=== PATIENT | female | born 1970 | race Caucasian/White ===

== ENCOUNTER 2016-05-23 07:04 | Emergency (ER) | payer MEDICAID ==
[2016-05-23 07:26] LABS: Urine Bilirubin Negative (NEGATIVE); Urine Blood 250 /ul (NEGATIVE); Urine Ketone Negative (NEGATIVE); Urine Nitrite Negative (NEGATIVE); Urine Protein Negative (NEGATIVE); Urine Specific Gravity 1.025 SP.GR. (1.005-1.010); Urine Urobilinogen Normal (NORMAL)
[2016-05-23] MEDS ORDERED: KETOROLAC TROMETHAMINE 60 MG/2 ML VIAL IM ONE ×2 (07:37→07:39)
[2016-05-23 07:45] LABS: Urine Color Dark Yellow
--- NOTE | 2016-05-23 07:45 | ERNOTE ---
<Jason Gates - Last Filed: 05/23/16 07:59> ER Female HPI Stated Complaint: UTI Presenting Symptoms: other - flank pain Source: patient Exam Limitations: no limitations Immunizations: IMMUNIZATION HX Immunizations Up to Date Yes History of Influenza Vaccine No Hx Pneumococcal Vaccination No Allergies/Adverse Reactions: Allergies hydrocodone Allergy (Severe, Verified 05/23/16 07:12) Hives Home Medications: HOME MEDICATIONS Ondansetron [Zofran Odt] 4 mg PO Q6H PRN #10 tab 05/23/16 [Last Taken Unknown] Tamsulosin HCl [Flomax] 0.4 mg PO DAILY@1800 #7 capsule 05/23/16 [Last Taken Unknown] traMADol HCL [Ultram] 50 mg PO QID PRN #20 tablet 05/23/16 [Last Taken Unknown] - History of Present Illness Narrative: Pt states she was working overnight and she began to have right flank pain around 2:30. It worsened around 3:30 and began to wrap around to her groin. Pain is colicy but does not completely resolve. Timing: Present: getting worse Quality: Present: moderate, aching, cramping Onset Location: Present: right flank Radiation: Present: RLQ Activities at Onset: Present: physical activity Prior Abdominal Problems: Present: none Modifying Factors - (Worsens): Present: coughing, other - leaning toward the pain Associated Symptoms: Present: fever/chills, nausea - when the pain worsens Review of Systems - Review of Systems Constitutional: Absent: recent illness EYE: Present: no symptoms reported ENT: Present: no symptoms reported Respiratory: Present: no symptoms reported Cardiology: Present: no symptoms reported Gastrointestinal/Abdominal: Present: eating less - Just didn't have an appetite. Absent: vomiting, diarrhea, constipation Genitourinary: Present: See HPI, frequency. Absent: pain, dysuria Musculoskeletal: Present: back pain Skin: Absent: rash Neurological: Present: no symptoms reported Endocrine: Present: no symptoms reported Hematologic/Lymphatic: Present: no symptoms reported Psych: Present: no symptoms reported - Patient's Past Medical History Patient History - Medical: Kidney stone, Migraines Patient History - Cardiac/Respiratory: No pertinent hx Patient History - Cancer: No Hx of Cancer Patient History - Surgical Procedures: D & C, Other - Family History Mother Family History - Medical: Anxiety, Diabetes Type 2, Depression, Osteoporosis Family History - Cardiac/Respiratory: CHF - Social History Living Situations: home Smoking Status: Current every day smoker Have you smoked in the past 12 months: Yes Alcohol Use: none Drug Use: none Physical Exam - Physical Exam General Appearance: Present: wd/wn, alert, no apparent distress, other - appears mildly uncomfortable Ears, Nose, Throat: Present: normal ENT inspection, hearing grossly normal Neck: Present: normal inspection, supple Respiratory: Present: no respiratory distress, no accessory muscle use Gastrointestinal/Abdominal: Present: normal bowel sounds, nontender, nondistended, soft, no organomegaly Back Exam: Present: normal inspection, normal range of motion, CVA tenderness (R ) - minimal. Absent: vertebral tenderness Extremity Exam: Present: normal inspection, non-tender, no edema, normal range of motion Neurological Exam: Present: alert, oriented, normal mood/affect, no motor/ sensory deficits Skin Exam: Present: normal color, warm/dry ED Progress - Results and Orders Patient's Lab Results:: I have reviewed the patient's lab results. Results and Orders: Laboratory Tests 05/23/16 05/23/16 07:12 07:18 Urine Color Dark yellow Urine Appearance Slightly cloudy Urine pH 6.0 Ur Specific [place] 1.025 Urine Protein Negative Urine Glucose (UA) Negative Urine Ketones Negative Urine Blood 250 H Urine Nitrate Negative Urine Bilirubin Negative Urine Urobilinogen Normal Ur Leukocyte Esterase Negative Urine RBC >50 H Urine WBC Trace H Ur Epithelial Cells 0-5 Urine Bacteria Trace Urine Mucus Few - 1+ H Urine Culture Comments No culture indicated Urine HCG, Qual Negative - Vital Signs Patient's Vital Signs:: I have reviewed the patient's vital signs. Vital Signs: Vital Signs 05/23/16 07:09 Pulse Rate 89 Respiratory 14 Rate Blood Pressure 131/92 O2 Sat by Pulse 99 Oximetry - Progress/Reassessment Chief Complaint: Genitourinary Problem Progress:: Unchanged Progress Note-Subjective: 05/23/16 07:51 Urine showed hematuria without evidence of infection. Stone protocol CT ordered. - Transfer of Care Physician Sign Out: Jason Gates Receiving Physician: Patrick Nicholas Pending Results: CT/MRI results Expected Disposition: Discharge Departure Clinical Impression: Flank pain, acute, Renal stone - Departure Disposition: Home self-care Condition: Good Instructions: Renal Colic, [id number] Referrals: Vivian Estevez FNP [Primary Care Provider] - Prescriptions: Ondansetron [Zofran Odt] 4 mg PO Q6H PRN #10 tab PRN Reason: Nausea And Vomiting Tamsulosin HCl [Flomax] 0.4 mg PO DAILY@1800 #7 capsule traMADol HCL [Ultram] 50 mg PO QID PRN #20 tablet PRN Reason: Moderate Pain <Patrick Nicholas - Last Filed: 05/23/16 09:22> ER Female HPI Immunizations: IMMUNIZATION HX Immunizations Up to Date Yes History of Influenza Vaccine No Hx Pneumococcal Vaccination No ED Progress - Vital Signs Vital Signs: Vital Signs 05/23/16 05/23/16 07:09 08:49 Pulse Rate 89 99 Respiratory 14 14 Rate Blood Pressure 131/92 121/86 O2 Sat by Pulse 99 100 Oximetry - CT/Ultrasound CT/Ultrasound Narrative: CT reviewed
[2016-05-23 07:46] LABS: Urine Appearance Slightly Cloudy; Urine Bacteria TRACE; Urine Mucus Few - 1+; Urine RBC >50 /hpf (0-5); Urine WBC TRACE /hpf (0-5)
[2016-05-23 08:50] VITALS: BP 121/86
== END 2016-05-23 09:32 | disposition home or self-care (01) ==
LOC: ER 07:04
DX: N20.0 Calculus of kidney (principal); F17.210 Nicotine dependence, cigarettes, uncomplicated

== ENCOUNTER 2016-07-15 18:42 | Emergency (ER) | payer MEDICAID ==
[2016-07-15 19:01] VITALS: BP 149/89
--- OUTSIDE RECORDS SUMMARY | 2016-07-15 19:21 | XMS REPORT | Continuity of Care Document ---
:1970 Author Organization [facility] ([facility]) Address [address] [place] [address] Phone [phone] Care Team Providers Name Role Phone Provider, No-Primary Care Primary Care Provider Unavailable Source Comments This disclosure is being made pursuant to the Care Everywhere program, applicable federal and state laws, and may not contain all informaitonavailable regarding this patient.[facility] ([facility]) Active Allergies and Adverse Reactions Allergen Noted Date Severity Reactions Comments Hydrocodone-Acetaminophen 07/14/2014 Anaphylaxis,Rash Current Medications Prescription Sig. Disp. Refills Start Date End Date Status ibuprofen 800 mg tablet Take 1 Tab by mouth 20 Tab 0 07/14/2014 Active every 6 hours as needed for Pain. DO NOT EXCEED 3,200 MG IBUPROFEN PER DAY FROM ALL SOURCES Indications: PAIN traMADol 50 mg tablet Take 1-2 Tabs by 20 Tab 0 07/14/2014 Active mouth every 6 hours as needed for Pain. Indications: PAIN Active Problems Not on file Social History Tobacco Use Types Packs/Day Years Used Date Current Every Day Smoker Cigarettes 1 30 Smokeless Tobacco: Never Used Tobacco Cessation:Ready to Quit: Yes; Counseling Given: Yes Comments: Last Filed Vital Signs Vital Sign Reading Time Taken Blood Pressure 132/79 07/14/2014 3:17 PM [employer]OW [employer]ENCE [employer]OR Pulse 90 07/14/2014 3:17 PM [employer] Temperature 37 C (98.6 F) 07/14/2014 2:38 PM [employer]ENCE [employer] Respiratory Rate - - Height 1.676 m (5' 5.98") 07/14/2014 2:38 PM [employer] Weight 66.679 kg (147 lb) 07/14/2014 2:38 PM [employer] Body Mass Index 23.74 07/14/2014 2:38 PM [employer] Oxygen Saturation 100% 07/14/2014 2:38 PM [employer]ENCE [employer] Plan of Care Health Maintenance Due Date Last Done Comments Hepatitis B Vaccine (1 of 3 - Primary Series) 1970 Tdap Vaccine 1981 Lipid Disorder Screening 02/12/1988 MMR Vaccine 02/12/1988 Td Vaccine 02/12/1988 Pneumococcal Vaccine (1 of 1 - PPSV23) 1989 Cervical Cancer Screening 02/12/2000 Mammogram 2010 Influenza Vaccine: Seasonal (#1) 12/12/2015 Results from Last 3 Months Not on file
--- OUTSIDE RECORDS SUMMARY | 2016-07-15 19:21 | XMS REPORT | Summary of Care ---
:1970 Author Organization [facility] Address [address] [place] [id number]- Care Team Providers Name Role Phone Chelo Gill Primary Care Physician Encounter Date(s): 05/28/16 - 05/28/[address] [address]- [facility] Discharge Disposition: 01 Discharged to Home or Self Care Attending Physician: Claus Arriaga MD Admitting Physician: Claus Arriaga MD Vital Signs No data available for this section Problem List Condition Effective Dates Status Health Status Informant Family history of rheumatoid Active arthritis(Confirmed) Anxiety, generalized(Confirmed) Active Mild depression(Confirmed) Active Allergies, Adverse Reactions, Alerts Substance Reaction Severity Status Vicodin1 Mild Active 1if taken longer than a week, develops a rash and throat swelling Medications albuterol 2.5 mg/3 mL (0.083%) inhalation solution 3 mL, Inhale, q6hr, PRN for wheezing, # 25 EA, 0 Refill(s), Start Date: 11:47:00 CDT, Pharmacy: [place], [place] Start Date: 03/06/16 Stop Date: 03/06/16 Status: Completedalbuterol 2.5 mg/3 mL (0.083%) inhalation solution 3 mL, Inhale, q6hr, PRN for wheezing, # 25 EA, 0 Refill(s), Start Date: 13:00:00 CDT, Pharmacy: [place], [place] Start Date: 03/06/16 Status: Orderedalbuterol 90 mcg/inh inhalation powder 2 puff(s), Inhale, q4hr interval, # 1 EA, 1 Refill(s), Start Date: 02/21/16 12: 50:00 CDT, Pharmacy: [facility], [place] Start Date: 02/21/16 Stop Date: 04/21/16 Status: Orderedalbuterol 90 mcg/inh inhalation powder 2 puff(s), Inhale, q4hr interval, X 30 days, # 1 EA, 1 Refill(s), Start Date: 10:41:04 CDT, Pharmacy: [facility], [place] Start Date: 02/21/16 Stop Date: 02/21/16 Status: Completedalbuterol 90 mcg/inh inhalation powder 2 puff(s), Inhale, q4hr interval, X 30 days, # 1 EA, 1 Refill(s), Start Date: 9:47:00 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, Pharmacy: [facility], [place] Start Date: 03/28/15 Stop Date: 02/21/16 Status: CompletedAMOXICILLIN 500 MG CAPS 1 capsule, Oral, 0 Refill(s), Supply Start Date: 05/28/16 Status: OrderedAPAP/CODEINE TAB 300-30MG 1, Oral, q4hr interval, 0 Refill(s), Supply Start Date: 05/28/16 Status: Orderedatorvastatin 20 mg oral tablet 1 tab(s), Oral, Daily, # 30 tab(s), 0 Refill(s), Start Date: 05/26/15 16:28:00 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 Start Date: 05/26/15 Stop Date: 02/21/16 Status: Discontinuedatorvastatin 20 mg oral tablet 1 tab(s), Oral, Daily, # 30 tab(s), 5 Refill(s), Start Date: 02/02/15 12:38:00 CDT, Pharmacy: [facility], [place] Start Date: 02/02/15 Stop Date: 03/28/15 Status: DiscontinuedbuPROPion 150 mg/12 hours (SR) oral tablet, extended release 1 tab(s), Oral, BID, # 60 tab(s), 5 Refill(s), Start Date: 05/26/15 16:44:00 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 , Pharmacy: [facility], [place] Start Date: 05/26/15 Stop Date: 02/21/16 Status: Discontinuedcephalexin 500 mg oral capsule 1 cap(s), Oral, TID, # 30 cap(s), 0 Refill(s), Start Date: 08/29/14 23:51:00 CDT Start Date: 08/29/14 Stop Date: 01/06/15 Status: DiscontinuedChantix 1 mg oral tablet 1 tab(s), Oral, BID, after meals, # 60 tab(s), 0 Refill(s), Start Date: 14:10:00 CDT Start Date: 12/15/14 Stop Date: 03/28/15 Status: DiscontinuedCheratussin AC 10 mg-100 mg/5 mL oral syrup 10 mL, Oral, q6hr interval, PRN for cough, not to exceed 12 teaspoons/day, X 5 days, # 200 mL, 0 Refill(s), Start Date: 03/28/15 9:59:00 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, Pharmacy: [place], [place] Start Date: 03/28/15 Stop Date: 04/02/15 Status: CompletedDME - Nebulizer 1 EA, NEB, 02/21/16, Criteria in Order Comments Met?, # 1 EA, 0 Refill(s), 02/20 13:21:00 CDT, Supply Start Date: 02/21/16 Status: OrderedFLUoxetine 20 mg oral tablet 1 tab(s), Oral, Daily, # 30 tab(s), 11 Refill(s), Start Date: 01/18/15 17:54:00 CDT, Pharmacy: [place], [place] Start Date: 01/18/15 Stop Date: 03/28/15 Status: DiscontinuedFLUoxetine 20 mg oral tablet 1 tab(s), Oral, Daily, X 30 days, # 30 tab(s), 0 Refill(s), Start Date: 14:45:00 CDT, Pharmacy: [place], [place] Start Date: 12/15/14 Stop Date: 01/18/15 Status: Completedmultivitamin 1 tab(s), Oral, Daily, 0 Refill(s), Start Date: 12/15/14 14:10:00 CDT Start Date: 12/15/14 Stop Date: 02/21/16 Status: Discontinuednaproxen 500 mg oral tablet 1 tab(s), Oral, BID, with food, # 60 tab(s), 0 Refill(s), Start Date: 12/24/14 21:37:00 CDT Start Date: 12/24/14 Stop Date: 02/21/16 Status: Discontinuednicotine 4 mg oral transmucosal gum 1 EA, Chewed, q2hr, PRN for smoking cessation, # 360 EA, 2 Refill(s), Start Date : 06/06/15 12:13:00 [employer] 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, Pharmacy: [place], [place] Start Date: 06/06/15 Stop Date: 02/21/16 Status: Discontinuednicotine 4 mg oral transmucosal gum 1 EA, Chewed, q2hr, PRN for smoking cessation, # 120 EA, 0 Refill(s), Start Date : 06/06/15 10:36:00 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 Start Date: 06/06/15 Stop Date: 06/06/15 Status: DiscontinuedONDANSETRON ODT 4 MG TBDP 1 tab, Oral, TID, 0 Refill(s), Supply Start Date: 05/28/16 Status: OrderedPaxil 10 mg oral tablet 1 tab(s), Oral, Daily, # 30 tab(s), 1 Refill(s), Start Date: 02/21/16 12:50:00 CDT, Pharmacy: [place], [place] Start Date: 02/21/16 Stop Date: 05/28/16 Status: DiscontinuedPaxil 10 mg oral tablet 1 tab(s), Oral, Daily, # 30 tab(s), 1 Refill(s), Start Date: 02/21/16 10:40:00 CDT, Pharmacy: [place], [place] Start Date: 02/21/16 Stop Date: 02/21/16 Status: CompletedPulmicort Flexhaler 90 mcg/inh inhalation powder 90 mcg=, Inhale, BID, # 1 EA, 0 Refill(s), other reason (Rx) Start Date: 03/05/16 Stop Date: 05/28/16 Status: DiscontinuedPulmicort Flexhaler 90 mcg/inh inhalation powder 90 mcg=, Inhale, BID, # 1 EA, 1 Refill(s), Pharmacy: [place], [place] Start Date: 02/21/16 Stop Date: 03/05/16 Status: DiscontinuedPulmicort Respules 1 mg/2 mL inhalation suspension 2 mL, NEB, Daily, # 60 mL, 0 Refill(s), Start Date: 02/21/16 13:21:00 CDT, Pharmacy: [place], [place] Start Date: 02/21/16 Stop Date: 02/21/16 Status: DiscontinuedPyridium 100 mg oral tablet 1 tab(s), Oral, TIDPC, # 9 tab(s), 0 Refill(s), Start Date: 08/29/14 23:51:00 CDT Start Date: 08/29/14 Stop Date: 01/06/15 Status: DiscontinuedTAMSULOSIN HCL .4 MG CAPS 1 cap, Oral, Daily, 0 Refill(s), Supply Start Date: 05/28/16 Status: OrderedTRAMADOL HCL 50 MG TABS 1 tab, Oral, q4hr interval, PRN pain moderate 4-7, 0 Refill(s), Supply Start Date: 05/28/16 Status: Ordered Results Patient Viewable Results Most recent to oldest [Reference Range]: 1 UA Color Yellow *NA* (05/28/16 11:20 AM) Urine Clarity Hazy *NA* (05/28/16 11:20 AM) Specific [place] [1.000-1.060] 1.009 (05/28/16 11:20 AM) Urine pH [5-8] 6 (05/28/16 11:20 AM) Ketones Negative (05/28/16 11:20 AM) Bilirubin [Negative] Negative (05/28/16 11:20 AM) Urine Protein [Negative] Negative (05/28/16 11:20 AM) Glucose [Negative] Negative (05/28/16 11:20 AM) Urine HGB [Negative] 2+ *ABN* (05/28/16 11:20 AM) Urobilinogen <2.0 *NA* (05/28/16 11:20 AM) Nitrite [Negative] Negative (05/28/16 11:20 AM) Leuk Esterase [Negative] Trace *ABN* (05/28/16 11:20 AM) UA Ascorbic Acid [Negative] Negative (05/28/16 11:20 AM) Urine WBC [0-5] 0-5 (05/28/16 11:20 AM) Urine RBC [0-2] 3-10 *ABN* (05/28/16 11:20 AM) Squamous Epi 6-10 *ABN* (05/28/16 11:20 AM) Bacteria 2+ *ABN* (05/28/16 11:20 AM) Mucus Trace (05/28/16 11:20 AM) Immunizations No data available for this section Procedures Procedure Date Related Diagnosis Body Site DRAINAGE OF SKIN ABSCESS 05/13/01 Dilation and curettage 1986 Repair of wrist1 1977 1right wrist reset Social History No data available for this section Assessment and Plan No data available for this section
--- OUTSIDE RECORDS SUMMARY | 2016-07-15 19:21 | XMS REPORT | Summary of Care ---
:1970 Author Organization [facility] Address [address] [place] [address] Care Team Providers Name Role Phone Chelo Gill Primary Care Physician Encounter Date(s): 05/28/16 - 05/28/[address] [facility] [address] [place], [place] [address] Discharge Diagnosis: Kidney stone on left side Discharge Diagnosis: Right distal ureteral calculus Discharge Disposition: 01 Discharged to Home or Self Care Attending Physician: Claus Arriaga MD Referring Physician: Claus Arriaga MD Vital Signs Most recent to oldest [Reference Range]: 1 Temperature Temporal Artery [36.0-38.0 DegC] 36.7 DegC (05/28/16 9:32 AM) Peripheral Pulse Rate [60-100 bpm] 100 bpm (05/28/16 9:32 AM) Blood Pressure [90-130/60-90 mmHg] 148/88mmHg *HI* (05/28/16 9:32 AM) Mean Arterial Pressure, Cuff 108 mmHg (05/28/16 9:32 AM) Weight Dosing 73.3 kg (05/28/16 9:32 AM) Weight Measured 73.3 kg (05/28/16 9:32 AM) Problem List Condition Effective Dates Status Health [...] 0 Refill(s), Start Date: 11:47:00 CDT, Pharmacy: [place], [place] Start Date: 03/06/16 Stop Date: 03/06/16 Status: Completedalbuterol 2.5 mg/3 mL (0.083%) inhalation solution 3 mL, Inhale, q6hr, PRN for wheezing, # 25 EA, 0 Refill(s), Start Date: 13:00:00 CDT, Pharmacy: [place], [place] Start Date: 03/06/16 Status: Orderedalbuterol 90 mcg/inh inhalation powder 2 puff(s), Inhale, q4hr interval, # 1 EA, 1 Refill(s), Start Date: 02/21/16 12: 50:00 CDT, Pharmacy: [place], [place] Start Date: 02/21/16 Stop Date: 04/21/16 Status: Orderedalbuterol 90 mcg/inh inhalation powder 2 puff(s), Inhale, q4hr interval, X 30 days, # 1 EA, 1 Refill(s), Start Date: 10:41:04 CDT, Pharmacy: [place], [place] Start Date: 02/21/16 Stop Date: 02/21/16 Status: Completedalbuterol 90 mcg/inh inhalation powder 2 puff(s), Inhale, q4hr interval, X 30 days, # 1 EA, 1 Refill(s), Start Date: 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, 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[place], [place] Start Date: 03/28/15 Stop Date: 02/21/16 Status: CompletedAMOXICILLIN 500 MG CAPS 1 capsule, Oral, 0 Refill(s), Supply Start Date: 05/28/16 Status: OrderedAPAP/CODEINE TAB 300-30MG 1, Oral, q4hr interval, 0 Refill(s), Supply Start Date: 05/28/16 Status: Orderedatorvastatin 20 mg oral tablet 1 tab(s), Oral, Daily, # 30 tab(s), 0 Refill(s), Start Date: 05/26/15 16:28:00 CAMPUS RECRUITER Start Date: 05/26/15 Stop Date: 02/21/16 Status: Discontinuedatorvastatin 20 mg oral tablet 1 tab(s), Oral, Daily, # 30 tab(s), 5 Refill(s), Start Date: 02/02/15 12:38:00 CDT, Pharmacy: [place], [place] Start Date: 02/02/15 Stop Date: 03/28/15 Status: DiscontinuedbuPROPion 150 mg/12 hours (SR) oral tablet, extended release 1 tab(s), Oral, BID, # 60 tab(s), 5 Refill(s), Start Date: 05/26/15 16:44:00 CAMPUS RECRUITER , Pharmacy: [place], [place] Start Date: 05/26/15 Stop Date: 02/21/16 Status: [...] mL, 0 Refill(s), Start Date: 03/28/15 9:59:00 CAMPUS RECRUITER, Pharmacy: [place], [place] Start Date: 03/28/15 Stop Date: 04/02/15 Status: CompletedDME - Nebulizer 1 EA, NEB, 02/21/16, Criteria in Order Comments Met?, # 1 EA, 0 Refill(s), 02/20 13:21:00 CDT, Supply Start Date: 02/21/16 Status: OrderedFLUoxetine 20 mg oral tablet 1 tab(s), Oral, Daily, # 30 tab(s), 11 Refill(s), Start Date: 01/18/15 17:54:00 CDT, Pharmacy: [place], [place] Start Date: 01/18/15 Stop Date: 03/28/15 Status: DiscontinuedFLUoxetine 20 mg oral tablet 1 tab(s), Oral, Daily, X 30 days, # 30 tab(s), 0 Refill(s), Start Date: 14:45:00 CDT, Pharmacy: [place], [place] Start Date: 12/15/14 Stop Date: 01/18/15 [...] 2 Refill(s), Start Date : 06/06/15 12:13:00 CAMPUS RECRUITER, Pharmacy: [place], [place] Start Date: 06/06/15 Stop Date: 02/21/16 Status: Discontinuednicotine 4 mg oral transmucosal gum 1 EA, Chewed, q2hr, PRN for smoking cessation, # 120 EA, 0 Refill(s), Start Date : 06/06/15 10:36:00 CAMPUS RECRUITER Start Date: 06/06/15 Stop Date: 06/06/15 Status: DiscontinuedONDANSETRON ODT 4 MG TBDP 1 tab, Oral, TID, 0 Refill(s), Supply Start Date: 05/28/16 Status: OrderedPaxil 10 mg oral tablet 1 tab(s), Oral, Daily, # 30 tab(s), 1 Refill(s), Start Date: 02/21/16 12:50:00 CDT, Pharmacy: [place], [place] Start Date: 02/21/16 Stop Date: 05/28/16 Status: DiscontinuedPaxil 10 mg oral tablet 1 tab(s), Oral, Daily, # 30 tab(s), 1 Refill(s), Start Date: 02/21/16 10:40:00 CDT, Pharmacy: [place], [place] Start Date: 02/21/16 Stop Date: 02/21/16 Status: CompletedPulmicort Flexhaler 90 mcg/inh inhalation powder 90 mcg=, Inhale, BID, # 1 EA, 0 Refill(s), other reason (Rx) Start Date: 03/05/16 Stop Date: 05/28/16 Status: DiscontinuedPulmicort Flexhaler 90 mcg/inh inhalation powder 90 mcg=, Inhale, BID, # 1 EA, 1 Refill(s), Pharmacy: [place], [place] Start Date: 02/21/16 Stop Date: 03/05/16 Status: DiscontinuedPulmicort Respules 1 mg/2 mL inhalation suspension 2 mL, NEB, Daily, # 60 mL, 0 Refill(s), Start Date: 02/21/16 13:21:00 CDT, Pharmacy: [place], [place] Start Date: 02/21/16 Stop Date: 02/21/16 [...] Most recent to oldest [Reference Range]: 1 Urine Appearance Urine Dipstick Clear (05/28/16 10:00 AM) Urine Color Urine Dipstick Yellow (05/28/16 10:00 AM) Bilirubin Urine Dipstick Negative (05/28/16 10:00 AM) pH Urine Dipstick 7 (05/28/16 10:00 AM) Urobilinogen Urine Dipstick 0.2 mg/dl (05/28/16 10:00 AM) Blood Urine Dipstick Small (05/28/16 10:00 AM) Glucose Urine Dipstick Negative (05/28/16 10:00 AM) Ketones Urine Dipstick Negative (05/28/16 10:00 AM) Protein Urine Dipstick Negative (05/28/16 10:00 AM) Nitrite Urine Dipstick Negative (05/28/16 10:00 AM) Leukocytes Urine Dipstick Negative (05/28/16 10:00 AM) Immunizations No data available for this section Procedures Procedure Date Related Diagnosis Body Site DRAINAGE OF SKIN ABSCESS 05/13/01 Dilation and curettage 1986 Repair of wrist1 1977 1right wrist reset Social History No data available for this section Assessment and Plan No data available for this section
--- OUTSIDE RECORDS SUMMARY | 2016-07-15 19:21 | XMS REPORT | Summary of Care ---
:1970 Author Organization [facility] Address [address] [place] [address] Care Team Providers Name Role Phone Chelo Gill Primary Care Physician Encounter Date(s): 06/07/16 - 06/07/16 [facility], [address] [place], [place] [address] Discharge Disposition: 01 Discharged to Home or Self Care Attending Physician: Claus Arriaga MD Referring Physician: Claus Arriaga MD Vital Signs Most recent to oldest [Reference Range]: 1 Temperature Temporal Artery [36.0-38.0 DegC] 36.8 DegC (06/07/16 10:14 AM) Peripheral Pulse Rate [60-100 bpm] 81 bpm (06/07/16 10:14 AM) Blood Pressure [90-130/60-90 mmHg] 120/73mmHg (06/07/16 10:14 AM) Mean Arterial Pressure, Cuff 89 mmHg (06/07/16 10:14 AM) Weight Dosing 72.70 kg1 (06/07/16 10:15 AM) Weight Measured 72.7 kg (06/07/16 10:14 AM) 1Result Comment: This result was because the dosing weight was either not entered or it is>30 days old. This result is based off: Weight Measured June 07, 2016 10:14:00 DIRECTOR FINANCIAL SYSTEMS by Yomaira Denny RN Problem List Condition Effective Dates Status Health [...] 0 Refill(s), Start Date: 11:47:00 CDT, Pharmacy: [place], [place] Start Date: 03/06/16 Stop Date: 03/06/16 Status: Completedalbuterol 2.5 mg/3 mL (0.083%) inhalation solution 3 mL, Inhale, q6hr, PRN for wheezing, # 25 EA, 0 Refill(s), Start Date: 13:00:00 CDT, Pharmacy: [place], [place] Start Date: 03/06/16 Status: Orderedalbuterol 90 mcg/inh inhalation powder 2 puff(s), Inhale, q4hr interval, # 1 EA, 1 Refill(s), Start Date: 02/21/16 12: 50:00 CDT, Pharmacy: [facility], [place] Start Date: 02/21/16 Stop Date: 04/21/16 Status: Orderedalbuterol 90 mcg/inh inhalation powder 2 puff(s), Inhale, q4hr interval, X 30 days, # 1 EA, 1 Refill(s), Start Date: 10:41:04 CDT, Pharmacy: [facility], [place] Start Date: 02/21/16 Stop Date: 02/21/16 Status: Completedalbuterol 90 mcg/inh inhalation powder 2 puff(s), Inhale, q4hr interval, X 30 days, # 1 EA, 1 Refill(s), Start Date: 9:47:00 DIRECTOR [employer]CIAL [employer]S, Pharmacy: [facility], [place] Start Date: 03/28/15 Stop Date: 02/21/16 Status: CompletedAMOXICILLIN 500 MG CAPS 1 capsule, Oral, 0 Refill(s), Supply Start Date: 05/28/16 Status: OrderedAPAP/CODEINE TAB 300-30MG 1, Oral, q4hr interval, 0 Refill(s), Supply Start Date: 05/28/16 Status: Orderedatorvastatin 20 mg oral tablet 1 tab(s), Oral, Daily, # 30 tab(s), 0 Refill(s), Start Date: 05/26/15 16:28:00 DIRECT[employer] Start Date: 05/26/15 Stop Date: 02/21/16 Status: Discontinuedatorvastatin 20 mg oral tablet 1 tab(s), Oral, Daily, # 30 tab(s), 5 Refill(s), Start Date: 02/02/15 12:38:00 CDT, Pharmacy: [place], [place] Start Date: 02/02/15 Stop Date: 03/28/15 Status: DiscontinuedbuPROPion 150 mg/12 hours (SR) oral tablet, extended release 1 tab(s), Oral, BID, # 60 tab(s), 5 Refill(s), Start Date: 05/26/15 16:44:00 DIRECTOR FIN[employer]CIAL SYSTEMS , Pharmacy: [place], [place] Start Date: 05/26/15 Stop Date: 02/21/16 [...] mL, 0 Refill(s), Start Date: 03/28/15 9:59:00 DIRECTOR [employer]S, Pharmacy: [place], [place] Start Date: 03/28/15 Stop Date: 04/02/15 Status: CompletedDME - Nebulizer 1 EA, NEB, 02/21/16, Criteria in Order Comments Met?, # 1 EA, 0 Refill(s), 02/20 13:21:00 CDT, Supply Start Date: 02/21/16 Status: OrderedFLUoxetine 20 mg oral tablet 1 tab(s), Oral, Daily, # 30 tab(s), 11 Refill(s), Start Date: 01/18/15 17:54:00 CDT, Pharmacy: [place], [place] Start Date: 01/18/15 Stop Date: 03/28/15 Status: DiscontinuedFLUoxetine 20 mg oral tablet 1 tab(s), Oral, Daily, X 30 days, # 30 tab(s), 0 Refill(s), Start Date: 14:45:00 CDT, Pharmacy: [place] Start Date: 12/15/14 Stop Date: 01/18/15 [...] 2 Refill(s), Start Date : 06/06/15 12:13:00 DIRECTOR [employer]S, Pharmacy: [place], [place] Start Date: 06/06/15 Stop Date: 02/21/16 Status: Discontinuednicotine 4 mg oral transmucosal gum 1 EA, Chewed, q2hr, PRN for smoking cessation, # 120 EA, 0 Refill(s), Start Date : 06/06/15 10:36:00 DIRECT[employer] Start Date: 06/06/15 Stop Date: 06/06/15 Status: DiscontinuedONDANSETRON ODT 4 MG TBDP 1 tab, Oral, TID, 0 Refill(s), Supply Start Date: 05/28/16 Status: OrderedPaxil 10 mg oral tablet 1 tab(s), Oral, Daily, # 30 tab(s), 1 Refill(s), Start Date: 02/21/16 12:50:00 CDT, Pharmacy: [place], [place] Start Date: 02/21/16 Stop Date: 05/28/16 Status: DiscontinuedPaxil 10 mg oral tablet 1 tab(s), Oral, Daily, # 30 tab(s), 1 Refill(s), Start Date: 02/21/16 10:40:00 CDT, Pharmacy: [place] Start Date: 02/21/16 Stop Date: 02/21/16 Status: CompletedPulmicort Flexhaler 90 mcg/inh inhalation powder 90 mcg=, Inhale, BID, # 1 EA, 0 Refill(s), other reason (Rx) Start Date: 03/05/16 Stop Date: 05/28/16 Status: DiscontinuedPulmicort Flexhaler 90 mcg/inh inhalation powder 90 mcg=, Inhale, BID, # 1 EA, 1 Refill(s), Pharmacy: [place], [place] Start Date: 02/21/16 Stop Date: 03/05/16 Status: DiscontinuedPulmicort Respules 1 mg/2 mL inhalation suspension 2 mL, NEB, Daily, # 60 mL, 0 Refill(s), Start Date: 02/21/16 13:21:00 CDT, Pharmacy: [place] Start Date: 02/21/16 Stop Date: 02/21/16 [...] Range]: 1 Urine Appearance Urine Dipstick Clear (06/07/16 11:07 AM) Urine Color Urine Dipstick Yellow (06/07/16 11:07 AM) Specific [place] Urine Dipstick 1.005 (06/07/16 11:07 AM) Bilirubin Urine Dipstick Negative (06/07/16 11:07 AM) pH Urine Dipstick 6 (06/07/16 11:07 AM) Urobilinogen Urine Dipstick 0.2 mg/dl (06/07/16 11:07 AM) Blood Urine Dipstick Negative (06/07/16 11:07 AM) Glucose Urine Dipstick Negative (06/07/16 11:07 AM) Ketones Urine Dipstick Negative (06/07/16 11:07 AM) Protein Urine Dipstick Negative (06/07/16 11:07 AM) Nitrite Urine Dipstick Negative (06/07/16 11:07 AM) Leukocytes Urine Dipstick Negative (06/07/16 11:07 AM) Immunizations No data available for this section Procedures Procedure Date Related Diagnosis Body Site DRAINAGE OF SKIN ABSCESS 05/13/01 Dilation and curettage 1986 Repair of wrist1 1977 1right wrist reset Social History No data available for this section Assessment and Plan No data available for this section
--- OUTSIDE RECORDS SUMMARY | 2016-07-15 19:22 | XMS REPORT | Summary of Care ---
:1970 Author Organization [facility] Address [address] [place] [address] Care Team Providers Name Role Phone Chelo Gill Primary Care Physician Encounter Date(s): 06/26/16 - 06/26/16 [facility], [address] [place], [place] [address] Discharge Disposition: 01 Discharged to Home or Self Care Attending Physician: YOVANI Mccarthy Referring Physician: YOVANI Mccarthy Vital Signs Most recent to oldest [Reference Range]: 1 Temperature Tympanic [36.6-38.1 DegC] 36.0 DegC *LOW* (06/26/16 10:56 AM) Temperature C to F 96.8 (06/26/16 10:56 AM) Peripheral Pulse Rate [60-100 bpm] 92 bpm (06/26/16 10:56 AM) SpO2 [90-100 %] 97 % (06/26/16 10:56 AM) SpO2 Location Right hand (06/26/16 10:56 AM) Blood Pressure [90-130/60-90 mmHg] 140/85mmHg *HI* (06/26/16 10:56 AM) Mean Arterial Pressure, Cuff 103 mmHg (06/26/16 10:56 AM) Most recent to oldest [Reference Range]: 1 Height/Length Measured 168 cm (06/26/16 10:56 AM) Weight Dosing 70.80 kg1 (06/26/16 10:59 AM) Weight Measured 70.8 kg (06/26/16 10:56 AM) BSA Measured 1.8 m2 (06/26/16 10:56 AM) Body Mass Index Measured 25.09 kg/m2 (06/26/16 10:56 AM) 1Result Comment: This result was because the dosing weight was either not entered or it is>30 days old. This result is based off: Weight Measured June 26, 2016 10:56:00 WATER/WASTEWATER PROJECT MANAGER by Penny Lombardi Problem List Condition Effective Dates Status Health [...] 0 Refill(s), Start Date: 11:47:00 CDT, Pharmacy: [place], [place] Start Date: 03/06/16 Stop Date: 03/06/16 Status: Completedalbuterol 2.5 mg/3 mL (0.083%) inhalation solution 3 mL, Inhale, q6hr, PRN for wheezing, # 25 EA, 0 Refill(s), Start Date: 13:00:00 CDT, Pharmacy: [place], [place] Start Date: 03/06/16 Status: Orderedalbuterol 90 mcg/inh inhalation powder 2 puff(s), Inhale, q4hr interval, # 1 EA, 1 Refill(s), Start Date: 02/21/16 12: 50:00 CDT, Pharmacy: [place], [place] Start Date: 02/21/16 Stop Date: 04/21/16 Status: Orderedalbuterol 90 mcg/inh inhalation powder 2 puff(s), Inhale, q4hr interval, X 30 days, # 1 EA, 1 Refill(s), Start Date: 10:41:04 CDT, Pharmacy: [place] Start Date: 02/21/16 Stop Date: 02/21/16 Status: Completedalbuterol 90 mcg/inh inhalation powder 2 puff(s), Inhale, q4hr interval, X 30 days, # 1 EA, 1 Refill(s), Start Date: 9:47:00 WATER/WASTEWATER PROJECT MANAGER, Pharmacy: [place], [place] Start Date: 03/28/15 Stop Date: 02/21/16 Status: CompletedAMOXICILLIN 500 MG CAPS 1 capsule, Oral, 0 Refill(s), Supply Start Date: 05/28/16 Stop Date: 06/26/16 Status: DiscontinuedAPAP/CODEINE TAB 300-30MG 1, Oral, q4hr interval, 0 Refill(s), Supply Start Date: 05/28/16 Stop Date: 06/26/16 Status: Discontinuedatorvastatin 20 mg oral tablet 1 tab(s), Oral, Daily, # 30 tab(s), 0 Refill(s), Start Date: 05/26/15 16:28:00 WATER/WASTEWATER PROJECT MANAGER Start Date: 05/26/15 Stop Date: 02/21/16 Status: Discontinuedatorvastatin 20 mg oral tablet 1 tab(s), Oral, Daily, # 30 tab(s), 5 Refill(s), Start Date: 02/02/15 12:38:00 CDT, Pharmacy: [place], [place] Start Date: 02/02/15 Stop Date: 03/28/15 Status: DiscontinuedbuPROPion 150 mg/12 hours (SR) oral tablet, extended release 1 tab(s), Oral, BID, # 60 tab(s), 5 Refill(s), Start Date: 05/26/15 16:44:00 WATER/WASTEWATER PROJECT MANAGER , Pharmacy: [place], [place] Start Date: 05/26/15 Stop Date: 02/21/16 Status: Discontinuedcephalexin 500 mg oral capsule 1 cap(s), Oral, TID, # 30 cap(s), 0 Refill(s), Start Date: 08/29/14 23:51:00 CDT Start Date: 08/29/14 Stop Date: 01/06/15 Status: DiscontinuedChantix 1 mg oral tablet 1 tab(s), Oral, BID, after meals, # 60 tab(s), 0 Refill(s), Start Date: 14:10:00 CDT Special Instructions: after meals Start Date: 12/15/14 Stop Date: 03/28/15 Status: DiscontinuedChantix Continuing Month 1 mg oral tablet 1 tab(s), Oral, BID, # 60 tab(s), 0 Refill(s), Start Date: 06/26/16 11:05:00 WATER/WASTEWATER PROJECT MANAGER , Pharmacy: [place], [place] Start Date: 06/26/16 Status: OrderedChantix Starter Pack 0.5 mg-1 mg oral tablet 1 tab(s), Oral, BID, as directed on package labeling, # 53 tab(s), 0 Refill(s), Start Date: 06/26/16 11:04:00 WATER/WASTEWATER PROJECT MANAGER, Pharmacy: [place], [place] Special Instructions: as directed on package labeling Start Date: 06/26/16 Status: OrderedCheratussin AC 10 mg-100 mg/5 mL oral syrup 10 mL, Oral, q6hr interval, PRN for cough, not to exceed 12 teaspoons/day, X 5 days, # 200 mL, 0 Refill(s), Start Date: 03/28/15 9:59:00 WATER/WASTEWATER PROJECT MANAGER, Pharmacy: [place], [place] Special Instructions: not to exceed 12 teaspoons/day Start Date: 03/28/15 Stop Date: 04/02/15 Status: CompletedDME - Nebulizer 1 EA, NEB, 02/21/16, Criteria in Order Comments Met?, # 1 EA, 0 Refill(s), 02/20 13:21:00 CDT, Supply Start Date: 02/21/16 Status: OrderedFLUoxetine 20 mg oral tablet 1 tab(s), Oral, Daily, # 30 tab(s), 11 Refill(s), Start Date: 01/18/15 17:54:00 CDT, Pharmacy: [place], [place] Start Date: 01/18/15 Stop Date: 03/28/15 Status: DiscontinuedFLUoxetine 20 mg oral tablet 1 tab(s), Oral, Daily, X 30 days, # 30 tab(s), 0 Refill(s), Start Date: 14:45:00 CDT, Pharmacy: [place], [place] Start Date: 12/15/14 Stop Date: 01/18/15 Status: Completedmultivitamin 1 tab(s), Oral, Daily, 0 Refill(s), Start Date: 12/15/14 14:10:00 CDT Start Date: 12/15/14 Stop Date: 02/21/16 Status: Discontinuednaproxen 500 mg oral tablet 1 tab(s), Oral, BID, with food, # 60 tab(s), 0 Refill(s), Start Date: 12/24/14 21:37:00 CDT Special Instructions: with food Start Date: 12/24/14 Stop Date: 02/21/16 Status: Discontinuednicotine 4 mg oral transmucosal gum 1 EA, Chewed, q2hr, PRN for smoking cessation, # 360 EA, 2 Refill(s), Start Date : 06/06/15 12:13:00 WATER/WASTEWATER PROJECT MANAGER, Pharmacy: [place], [place] Start Date: 06/06/15 Stop Date: 02/21/16 Status: Discontinuednicotine 4 mg oral transmucosal gum 1 EA, Chewed, q2hr, PRN for smoking cessation, # 120 EA, 0 Refill(s), Start Date : 06/06/15 10:36:00 WATER/WASTEWATER PROJECT MANAGER Start Date: 06/06/15 Stop Date: 06/06/15 Status: DiscontinuedONDANSETRON ODT 4 MG TBDP 1 tab, Oral, TID, 0 Refill(s), Supply Start Date: 05/28/16 Stop Date: 06/26/16 Status: DiscontinuedPaxil 10 mg oral tablet 1 tab(s), Oral, Daily, # 30 tab(s), 1 Refill(s), Start Date: 02/21/16 12:50:00 CDT, Pharmacy: [place], [place] Start Date: 02/21/16 Stop Date: 05/28/16 Status: DiscontinuedPaxil 10 mg oral tablet 1 tab(s), Oral, Daily, # 30 tab(s), 1 Refill(s), Start Date: 02/21/16 10:40:00 CDT, Pharmacy: [place] Start Date: 02/21/16 Stop Date: 02/21/16 Status: CompletedPulmicort Flexhaler 90 mcg/inh inhalation powder 90 mcg=, Inhale, BID, # 1 EA, 0 Refill(s), other reason (Rx) Start Date: 03/05/16 Stop Date: 05/28/16 Status: DiscontinuedPulmicort Flexhaler 90 mcg/inh inhalation powder 90 mcg=, Inhale, BID, # 1 EA, 1 Refill(s), Pharmacy: [place], [place] Start Date: 02/21/16 Stop Date: 03/05/16 Status: DiscontinuedPulmicort Respules 1 mg/2 mL inhalation suspension 2 mL, NEB, Daily, # 60 mL, 0 Refill(s), Start Date: 02/21/16 13:21:00 CDT, Pharmacy: [place], [place] Start Date: 02/21/16 Stop Date: 02/21/16 Status: DiscontinuedPyridium 100 mg oral tablet 1 tab(s), Oral, TIDPC, # 9 tab(s), 0 Refill(s), Start Date: 08/29/14 23:51:00 CDT Start Date: 08/29/14 Stop Date: 01/06/15 Status: DiscontinuedTAMSULOSIN HCL .4 MG CAPS 1 cap, Oral, Daily, 0 Refill(s), Supply Start Date: 05/28/16 Stop Date: 06/26/16 Status: DiscontinuedTRAMADOL HCL 50 MG TABS 1 tab, Oral, q4hr interval, PRN pain moderate 4-7, 0 Refill(s), Supply Start Date: 05/28/16 Stop Date: 06/26/16 Status: DiscontinuedVitamin B12 See Instructions, takes once daily, 0 Refill(s), Start Date: 06/26/16 10:54:00 WATER/WASTEWATER PROJECT MANAGER Special Instructions: takes once daily Start Date: 06/26/16 Status: OrderedVitamin D3 2000 intl units oral tablet 1 tab(s), Oral, Daily, 0 Refill(s), Start Date: 06/26/16 10:55:00 WATER/WASTEWATER PROJECT MANAGER Start Date: 06/26/16 Status: Orderedvitamin E See Instructions, Oral Daily, 0 Refill(s), Start Date: 06/26/16 10:55:00 WATER/WASTEWATER PROJECT MANAGER Special Instructions: Oral Daily Start Date: 06/26/16 Status: OrderedVitamin K1 See Instructions, once daily, 0 Refill(s), Start Date: 06/26/16 10:56:00 WATER/WASTEWATER PROJECT MANAGER Special Instructions: once daily Start Date: 06/26/16 Status: Ordered Results No data available for this section Immunizations No data available for this section Procedures Procedure Date Related Diagnosis Body Site DRAINAGE OF SKIN ABSCESS 05/13/01 Dilation and curettage 1986 Repair of wrist1 1977 1right wrist reset Social History No data available for this section Assessment and Plan No data available for this section
[2016-07-15] MEDS ORDERED: LORazepam 1 MG TABLET PO ONE (19:28)
[2016-07-15] MEDS ORDERED: LORazepam 1 MG TABLET ONE (19:30)
--- NOTE | 2016-07-15 19:45 | ERNOTE ---
Psychological HPI - Date Date of Service: 07/15/16 - General Chief Complaint: Psychiatric Problem Source: Reports: patient Exam Limitations: Reports: no limitations - Immun/Allergies/Home Medications Allergies/Adverse Reactions: Allergies hydrocodone Allergy (Severe, Verified 07/15/16 19:01) Hives Home Medications: HOME MEDICATIONS Acetaminophen [Tylenol] 1,000 mg PO Q4H PRN 07/15/16 [Last Taken 07/15/16 13:00] Escitalopram Oxalate [Lexapro] 5 mg PO DAILY 07/15/16 [Last Taken Unknown] Varenicline Tartrate [Chantix] 1 mg PO BID 07/15/16 [Last Taken Unknown] hydrOXYzine PAMOATE [Vistaril] 50 mg PO Q6H PRN #12 cap 07/15/16 [Last Taken Unknown] - History of Present Illness Narrative: Patient is passing through a situational problem with a significant other. Patient feels depress and anxious. Patient will like something to her to sleep. Patient at the moment is not suicidal, no homicidal, and has no active hallucinations. Patient has an established therapist, but needed to talk to someone. Time Seen by Provider: 07/15/16 19:08 Arrived by: Reports: private car Onset/duration: Reports: gradual onset Intent: Denies: suicide, wants to escape, accidental Mechanism: Denies: overdose, incision, stab wound, ingestion Situational Problems: Reports: significant other Associated Symptoms: Reports: depressed. Denies: angry, frustrated, agitated, hostile, paranoid, confused, hallucinating, specific plan, made gestures, made attempt Prior Treament: Reports: recently seen - by therapist Review of Systems - Review of Systems Constitutional: Present: no symptoms reported EYE: Present: no symptoms reported ENT: Present: no symptoms reported Respiratory: Present: no symptoms reported Cardiology: Present: no symptoms reported Gastrointestinal/Abdominal: Present: no symptoms reported Genitourinary: Present: no symptoms reported Musculoskeletal: Present: no symptoms reported Skin: Present: no symptoms reported Neurological: Present: anxiety, depressed, emotional problems. Absent: headache , dizziness/light-headedness, seizure, weakness, numbness, tingling, tremors, pre-existing deficit Endocrine: Present: no symptoms reported Hematologic/Lymphatic: Present: no symptoms reported Psych: Present: no symptoms reported All Other Systems: All systems neg except as marked - Patient's Past Medical History Patient History - Medical: Depression, Kidney stone, Migraines Patient History - Cardiac/Respiratory: Hyperlipidemia Patient History - Cancer: No Hx of Cancer Patient History - Surgical Procedures: D & C, Other Patient History - Other: None LMP (females 10-50): now LMP (Calendar): 12/19/15 - Family History Mother Family History - Medical: Anxiety, Diabetes Type 2, Depression, Osteoporosis Family History - Cardiac/Respiratory: CHF - Social History Living Situations: home Abuse History: No History of abuse Psych History: Hx of Depression, Current tx/ever been on anti-depressants or anti-anxiety meds Smoking Status: Current every day smoker Alcohol Use: none Drug Use: none - Immunizations Immunizations Up to Date: Yes Hx Pneumococcal Vaccination: No History of Influenza Vaccine: No Physical Exam - Physical Exam General Appearance: Present: wd/wn, alert, no apparent distress, anxious. Absent: lethargic, obese, cachetic Eye Exam: Normal inspection: bilateral Ears, Nose, Throat: Present: normal ENT inspection Neck: Present: normal inspection Respiratory: Present: no respiratory distress Cardiovascular/Chest: Present: regular rate, rhythm Gastrointestinal/Abdominal: Present: normal bowel sounds Extremity Exam: Present: normal inspection Neurological Exam: Present: alert, oriented, normal mood/affect, no motor/ sensory deficits, sample book maker II-XII nml as tested, normal cerebellar test, other - Patient is with mild depression, moderate anxiety, no active hallucinations. Patient has a FMS, and a logical thinking process.. Absent: facial droop, motor weakness, disoriented to person, disoriented to time, disoriented to place , disoriented to situation Skin Exam: Present: normal color, warm/dry Lymphatic Exam: Present: no adenopathy ED Progress - Date and Time Seen: Date and Time: 07/15/16 19:38 Patient will be given one Ativan and is to see Therapist tomorrow. - Vital Signs Patient's Vital Signs:: I have reviewed the patient's vital signs. Vital Signs: Vital Signs 07/15/16 18:51 Temperature 36.6 C Pulse Rate 81 Respiratory 18 Rate Blood Pressure 149/89 O2 Sat by Pulse 99 Oximetry - Progress/Reassessment Chief Complaint: Psychiatric Problem - Transfer of Care Expected Disposition: Discharge Departure Clinical Impression: Anxiety Depressed Qualifiers: Depression Type: unspecified Qualified Code(s): F32.9 - Major depressive disorder, single episode, unspecified - Departure Disposition: Home self-care Condition: Stable Instructions: Panic Attacks, [id number], Complicated Grieving Additional Instructions: Please follow up with your Therapist tomorrow. Referrals: Chelo Gill ARNP [Primary Care Provider] - Prescriptions: hydrOXYzine PAMOATE [Vistaril] 50 mg PO Q6H PRN #12 cap PRN Reason: Anxiety
== END 2016-07-15 19:45 | disposition home or self-care (01) ==
LOC: ER 18:42
DX: F32.9 Major depressive disorder, single episode, unspecified (principal); F41.9 Anxiety disorder, unspecified

== ENCOUNTER 2016-12-23 16:41 | Emergency (ER) | payer MEDICAID ==
[2016-12-23] MEDS ORDERED: NORMAL SALINE 1,000 ML IV ONE (17:00)
[2016-12-23] MEDS ORDERED: ONDANSETRON HCL/PF 2 MG/ML VIAL IV ONE (17:01)
[2016-12-23] MEDS ORDERED: MORPHINE SULFATE 2 MG/ML DISP.SYRIN IV ONE (17:03)
[2016-12-23] MEDS ORDERED: LIDOCAINE HCL 20 ML UDC PO ONE (17:04)
[2016-12-23] MEDS ORDERED: MAG HYDROX/ALUMINUM HYD/SIMETH 30 ML UDC PO ONE (17:04)
[2016-12-23] MEDS ORDERED: BELLADONNA ALKALOIDS/PHENOBARB 60 ML BTL PO ONE (17:08)
[2016-12-23] MEDS ORDERED: ONDANSETRON HCL/PF 2 MG/ML VIAL ONE (17:14)
[2016-12-23] MEDS ORDERED: MORPHINE SULFATE 2 MG/ML DISP.SYRIN ONE (17:14)
[2016-12-23 17:20] LABS: Hematocrit 35.1 % (37.0-47.0); Hemoglobin 11.7 gm/dL (12.5-16.0); Mean Cell Volume 87.1 fl (78-100); Mean Corpuscular Hgb Conc 33.3 g/dl (32-36); Mean Platelet Volume 10.5 fl (6.0-9.5); Neutrophil # 4.7 K/mm3 (1.3-6.0); Neutrophil % 60.2 % (42-75.0); Platelet Count 230 K/mm3 (150-450); Red Blood Count 4.03 M/mm3 (4.2-5.4); Red Cell Distribution Width 13.7 % (11.5-14.0); White Blood Count 7.8 K/mm3 (4.0-10.5)
[2016-12-23 17:28] LABS: Albumin * 3.6 gm/dl (3.4-5.0); Anion Gap 13.7 mmol/L (6.8-13.8); BUN/Creatinine Ratio 11.7 (9.0-21.6); Bilirubin, Total 0.5 mg/dL (0.0-1.1); Ca. Corrected For Albumin 8.8 mg/dL (8.4-10.2); Calcium * 8.8 mg/dL (7.9-10.9); Carbon Dioxide 25.7 mmol/L (24-32.6); Potassium 3.4 mmol/L (3.4-4.6); Total Protein 7.1 gm/dL (6.2-8.2)
[2016-12-23 17:48] LABS: Urine Appearance Clear; Urine Bilirubin Negative (NEGATIVE); Urine Blood 150 /ul (NEGATIVE); Urine Color Yellow; Urine Ketone Negative (NEGATIVE); Urine Nitrite Negative (NEGATIVE); Urine Protein Negative (NEGATIVE); Urine Urobilinogen Normal (NORMAL); Urine WBC 0-5 /hpf (0-5); Urine pH 6.5 pH (5.0-7.0)
[2016-12-23 17:49] LABS: Urine Bacteria None Seen; Urine RBC 0-5 /hpf (0-5)
[2016-12-23] MEDS ORDERED: PANTOPRAZOLE SODIUM 40 MG in NORMAL SALINE 100 ML IV ONE (17:57)
[2016-12-23] MEDS ORDERED: PANTOPRAZOLE SODIUM 40 MG/100 ML PIGGYBACK IV ONE (18:08)
--- OUTSIDE RECORDS SUMMARY | 2016-12-23 18:09 | XMS REPORT | Summary of Care ---
:1970 Author Organization [facility] Address [address] [place] [address] Care Team Providers Name Role Phone Chelo Gill Primary Care Physician Encounter Date(s): 08/14/16 - 08/14/16 [facility], [address] [place] [address]- [facility] Discharge Disposition: Discharged to Home or Self Care Attending Physician: YOVANI Mccarthy Vital Signs No data available for this [...] 0 Refill(s), Start Date: 11:47:00 CDT, Pharmacy: [place], [place] Start Date: 03/06/16 Stop Date: 03/06/16 Status: Completedalbuterol 2.5 mg/3 mL (0.083%) inhalation solution 3 mL, Inhale, q6hr, PRN for wheezing, # 25 EA, 0 Refill(s), Start Date: 13:00:00 CDT, Pharmacy: [place], [place] Start Date: 03/06/16 Status: Orderedalbuterol 90 mcg/inh inhalation powder 2 puff(s), Inhale, q4hr interval, # 1 EA, 1 Refill(s), Start Date: 02/21/16 12: 50:00 CDT, Pharmacy: [place], [place] Start Date: 02/21/16 Stop Date: 04/21/16 Status: Orderedalbuterol 90 mcg/inh inhalation powder 2 puff(s), Inhale, q4hr interval, X 30 days, # 1 EA, 1 Refill(s), Start Date: 10:41:04 CDT, Pharmacy: [place] Start Date: 02/21/16 Stop Date: 02/21/16 Status: Completedalbuterol 90 mcg/inh inhalation powder 2 puff(s), Inhale, q4hr interval, X 30 days, # 1 EA, 1 Refill(s), Start Date: 9:47:00 ROUTE SPECIALIST, Pharmacy: [place], [place] Start Date: 03/28/15 Stop Date: 02/21/16 Status: CompletedAMOXICILLIN 500 MG CAPS 1 capsule, Oral, 0 Refill(s), Supply Start Date: 05/28/16 Stop Date: 06/26/16 Status: DiscontinuedAPAP/CODEINE TAB 300-30MG 1, Oral, q4hr interval, 0 Refill(s), Supply Start Date: 05/28/16 Stop Date: 06/26/16 Status: Discontinuedatorvastatin 20 mg oral tablet 1 tab(s), Oral, Daily, # 30 tab(s), 0 Refill(s), Start Date: 05/26/15 16:28:00 ROUTE SPECIALIST Start Date: 05/26/15 Stop Date: 02/21/16 Status: Discontinuedatorvastatin 20 mg oral tablet 1 tab(s), Oral, Daily, # 30 tab(s), 5 Refill(s), Start Date: 02/02/15 12:38:00 CDT, Pharmacy: [place], [place] Start Date: 02/02/15 Stop Date: 03/28/15 Status: DiscontinuedbuPROPion 150 mg/12 hours (SR) oral tablet, extended release 1 tab(s), Oral, BID, # 60 tab(s), 5 Refill(s), Start Date: 05/26/15 16:44:00 ROUTE SPECIALIST , Pharmacy: [place], [place] Start Date: 05/26/15 Stop Date: 02/21/16 [...] tab(s), 0 Refill(s), Start Date: 06/26/16 11:05:00 ROUTE SPECIALIST , Pharmacy: [place] Start Date: 06/26/16 Status: OrderedChantix Starter Pack 0.5 mg-1 mg oral tablet 1 tab(s), Oral, BID, as directed on package labeling, # 53 tab(s), 0 Refill(s), Start Date: 06/26/16 11:04:00 ROUTE SPECIALIST, Pharmacy: [place], [place] Special Instructions: as directed on package labeling Start Date: 06/26/16 Status: OrderedCheratussin AC 10 mg-100 mg/5 mL oral syrup 10 mL, Oral, q6hr interval, PRN for cough, not to exceed 12 teaspoons/day, X 5 days, # 200 mL, 0 Refill(s), Start Date: 03/28/15 9:59:00 ROUTE SPECIALIST, Pharmacy: [place], [place] Special Instructions: not to exceed 12 teaspoons/day Start Date: 03/28/15 Stop Date: 04/02/15 Status: CompletedDME - Nebulizer 1 EA, NEB, 02/21/16, Criteria in Order Comments Met?, # 1 EA, 0 Refill(s), 02/20 13:21:00 CDT, Supply Start Date: 02/21/16 Status: Orderedescitalopram 10 mg oral tablet See Instructions, Take hlf tablet Oral Daily for two weeks then, 1 tab(s) Oral Daily, # 30 tab(s), 0 Refill(s), Start Date: 07/05/16 9:14:00 ROUTE SPECIALIST, Pharmacy: [place], [place] Special Instructions: Take hlf tablet Oral Daily for two weeks then, 1 tab(s) Oral Daily Start Date: 07/05/16 Status: OrderedFLUoxetine 20 mg oral tablet 1 tab(s), Oral, Daily, # 30 tab(s), 11 Refill(s), Start Date: 01/18/15 17:54:00 CDT, Pharmacy: [place] Start Date: 01/18/15 Stop Date: 03/28/15 Status: DiscontinuedFLUoxetine 20 mg oral tablet 1 tab(s), Oral, Daily, X 30 days, # 30 tab(s), 0 Refill(s), Start Date: 14:45:00 CDT, Pharmacy: [place] Start Date: 12/15/14 Stop Date: 01/18/15 [...] 2 Refill(s), Start Date : 06/06/15 12:13:00 ROUTE SPECIALIST, Pharmacy: [place] Start Date: 06/06/15 Stop Date: 02/21/16 Status: Discontinuednicotine 4 mg oral transmucosal gum 1 EA, Chewed, q2hr, PRN for smoking cessation, # 120 EA, 0 Refill(s), Start Date : 06/06/15 10:36:00 ROUTE SPECIALIST Start Date: 06/06/15 Stop Date: 06/06/15 Status: DiscontinuedONDANSETRON ODT 4 MG TBDP 1 tab, Oral, TID, 0 Refill(s), Supply Start Date: 05/28/16 Stop Date: 06/26/16 Status: DiscontinuedPaxil 10 mg oral tablet 1 tab(s), Oral, Daily, # 30 tab(s), 1 Refill(s), Start Date: 02/21/16 12:50:00 CDT, Pharmacy: [place] Start Date: 02/21/16 Stop Date: 05/28/16 Status: DiscontinuedPaxil 10 mg oral tablet 1 tab(s), Oral, Daily, # 30 tab(s), 1 Refill(s), Start Date: 02/21/16 10:40:00 CDT, Pharmacy: [place] Start Date: 02/21/16 Stop Date: 02/21/16 Status: CompletedPulmicort Flexhaler 90 mcg/inh inhalation powder 90 mcg=, Inhale, BID, # 1 EA, 0 Refill(s), other reason (Rx) Start Date: 03/05/16 Stop Date: 05/28/16 Status: DiscontinuedPulmicort Flexhaler 90 mcg/inh inhalation powder 90 mcg=, Inhale, BID, # 1 EA, 1 Refill(s), Pharmacy: [place], [place] Start Date: 02/21/16 Stop Date: 03/05/16 Status: DiscontinuedPulmicort Respules 1 mg/2 mL inhalation suspension 2 mL, NEB, Daily, # 60 mL, 0 Refill(s), Start Date: 02/21/16 13:21:00 CDT, Pharmacy: [place] Start Date: 02/21/16 Stop Date: 02/21/16 [...] daily, 0 Refill(s), Start Date: 06/26/16 10:54:00 ROUTE SPECIALIST Special Instructions: takes once daily Start Date: 06/26/16 Status: OrderedVitamin D3 2000 intl units oral tablet 1 tab(s), Oral, Daily, 0 Refill(s), Start Date: 06/26/16 10:55:00 ROUTE SPECIALIST Start Date: 06/26/16 Status: Orderedvitamin E See Instructions, Oral Daily, 0 Refill(s), Start Date: 06/26/16 10:55:00 ROUTE SPECIALIST Special Instructions: Oral Daily Start Date: 06/26/16 Status: OrderedVitamin K1 See Instructions, once daily, 0 Refill(s), Start Date: 06/26/16 10:56:00 ROUTE SPECIALIST Special Instructions: once daily Start Date: 06/26/16 Status: Ordered Results No data available for this section Immunizations No data available for this section Procedures Procedure Date Related Diagnosis Body Site DRAINAGE OF SKIN ABSCESS 05/13/01 Dilation and curettage 1987 Repair of wrist1 1977 1right wrist reset Social History No data available for this section Assessment and Plan No data available for this section
--- OUTSIDE RECORDS SUMMARY | 2016-12-23 18:10 | XMS REPORT | Summary of Care ---
:1970 Author Organization [facility] Care Team Providers Name Role Phone Chelo Gill Primary Care Physician Encounter Date(s): 08/10/16 - 08/10/16 [place] [id number] Discharge Disposition: 01 Discharged to Home or Self Care Attending Physician: Tae Gaytan MD Vital Signs No data available for [...] 0 Refill(s), Start Date: 11:47:00 CDT, Pharmacy: [place], [place] Start Date: 03/06/16 Stop Date: 03/06/16 Status: Completedalbuterol 2.5 mg/3 mL (0.083%) inhalation solution 3 mL, Inhale, q6hr, PRN for wheezing, # 25 EA, 0 Refill(s), Start Date: 13:00:00 CDT, Pharmacy: [place], [place] Start Date: 03/06/16 Status: Orderedalbuterol 90 mcg/inh inhalation powder 2 puff(s), Inhale, q4hr interval, # 1 EA, 1 Refill(s), Start Date: 02/21/16 12: 50:00 CDT, Pharmacy: [facility], [place] Start Date: 02/21/16 Stop Date: 04/21/16 Status: Orderedalbuterol 90 mcg/inh inhalation powder 2 puff(s), Inhale, q4hr interval, X 30 days, # 1 EA, 1 Refill(s), Start Date: 10:41:04 CDT, Pharmacy: [facility], [place] Start Date: 02/21/16 Stop Date: 02/21/16 Status: Completedalbuterol 90 mcg/inh inhalation powder 2 puff(s), Inhale, q4hr interval, X 30 days, # 1 EA, 1 Refill(s), Start Date: 9:47:00 GEROPSYCHOLOGIST, Pharmacy: [facility], [place] Start Date: 03/28/15 Stop Date: 02/21/16 Status: CompletedAMOXICILLIN 500 MG CAPS 1 capsule, Oral, 0 Refill(s), Supply Start Date: 05/28/16 Stop Date: 06/26/16 Status: DiscontinuedAPAP/CODEINE TAB 300-30MG 1, Oral, q4hr interval, 0 Refill(s), Supply Start Date: 05/28/16 Stop Date: 06/26/16 Status: Discontinuedatorvastatin 20 mg oral tablet 1 tab(s), Oral, Daily, # 30 tab(s), 0 Refill(s), Start Date: 05/26/15 16:28:00 GEROPSYCHOLOGIST Start Date: 05/26/15 Stop Date: 02/21/16 Status: Discontinuedatorvastatin 20 mg oral tablet 1 tab(s), Oral, Daily, # 30 tab(s), 5 Refill(s), Start Date: 02/02/15 12:38:00 CDT, Pharmacy: [facility], [place] Start Date: 02/02/15 Stop Date: 03/28/15 Status: DiscontinuedbuPROPion 150 mg/12 hours (SR) oral tablet, extended release 1 tab(s), Oral, BID, # 60 tab(s), 5 Refill(s), Start Date: 05/26/15 16:44:00 GEROPSYCHOLOGIST , Pharmacy: [facility], [place] Start Date: 05/26/15 Stop Date: 02/21/16 Status: [...] tab(s), 0 Refill(s), Start Date: 06/26/16 11:05:00 GEROPSYCHOLOGIST , Pharmacy: [place], [place] Start Date: 06/26/16 Status: OrderedChantix Starter Pack 0.5 mg-1 mg oral tablet 1 tab(s), Oral, BID, as directed on package labeling, # 53 tab(s), 0 Refill(s), Start Date: 06/26/16 11:04:00 GEROPSYCHOLOGIST, Pharmacy: [place], [place] Special Instructions: as directed on package labeling Start Date: 06/26/16 Status: OrderedCheratussin AC 10 mg-100 mg/5 mL oral syrup 10 mL, Oral, q6hr interval, PRN for cough, not to exceed 12 teaspoons/day, X 5 days, # 200 mL, 0 Refill(s), Start Date: 03/28/15 9:59:00 GEROPSYCHOLOGIST, Pharmacy: [place], [place] Special Instructions: not to exceed 12 [...] tab(s), 0 Refill(s), Start Date: 07/05/16 9:14:00 GEROPSYCHOLOGIST, Pharmacy: [place], [place] Special Instructions: Take hlf tablet Oral Daily for two weeks then, 1 tab(s) Oral Daily Start Date: 07/05/16 Status: OrderedFLUoxetine 20 mg oral tablet 1 tab(s), Oral, Daily, # 30 tab(s), 11 Refill(s), Start Date: 01/18/15 17:54:00 CDT, Pharmacy: [place] Start Date: 01/18/15 Stop Date: 03/28/15 Status: DiscontinuedFLUoxetine 20 mg oral tablet 1 tab(s), Oral, Daily, X 30 days, # 30 tab(s), 0 Refill(s), Start Date: 14:45:00 CDT, Pharmacy: [place], [place] Start Date: 12/15/14 Stop Date: 01/18/15 [...] 2 Refill(s), Start Date : 06/06/15 12:13:00 GEROPSYCHOLOGIST, Pharmacy: [place], [place] Start Date: 06/06/15 Stop Date: 02/21/16 Status: Discontinuednicotine 4 mg oral transmucosal gum 1 EA, Chewed, q2hr, PRN for smoking cessation, # 120 EA, 0 Refill(s), Start Date : 06/06/15 10:36:00 GEROPSYCHOLOGIST Start Date: 06/06/15 Stop Date: 06/06/15 Status: DiscontinuedONDANSETRON ODT 4 MG TBDP 1 tab, Oral, TID, 0 Refill(s), Supply Start Date: 05/28/16 Stop Date: 06/26/16 Status: DiscontinuedPaxil 10 mg oral tablet 1 tab(s), Oral, Daily, # 30 tab(s), 1 Refill(s), Start Date: 02/21/16 12:50:00 CDT, Pharmacy: [place], [place] Start Date: 02/21/16 Stop Date: 05/28/16 Status: DiscontinuedPaxil 10 mg oral tablet 1 tab(s), Oral, Daily, # 30 tab(s), 1 Refill(s), Start Date: 02/21/16 10:40:00 CDT, Pharmacy: [place] Start Date: 02/21/16 Stop Date: 02/21/16 Status: CompletedPulmicort Flexhaler 90 mcg/inh inhalation powder 90 mcg=, Inhale, BID, # 1 EA, 0 Refill(s), other reason (Rx) Start Date: 03/05/16 Stop Date: 05/28/16 Status: DiscontinuedPulmicort Flexhaler 90 mcg/inh inhalation powder 90 mcg=, Inhale, BID, # 1 EA, 1 Refill(s), Pharmacy: [place], [place] Start Date: 02/21/16 Stop Date: 03/05/16 Status: DiscontinuedPulmicort Respules 1 mg/2 mL inhalation suspension 2 mL, NEB, Daily, # 60 mL, 0 Refill(s), Start Date: 02/21/16 13:21:00 CDT, Pharmacy: [place], [place] Start Date: 02/21/16 Stop Date: 02/21/16 [...] daily, 0 Refill(s), Start Date: 06/26/16 10:54:00 GEROPSYCHOLOGIST Special Instructions: takes once daily Start Date: 06/26/16 Status: OrderedVitamin D3 2000 intl units oral tablet 1 tab(s), Oral, Daily, 0 Refill(s), Start Date: 06/26/16 10:55:00 GEROPSYCHOLOGIST Start Date: 06/26/16 Status: Orderedvitamin E See Instructions, Oral Daily, 0 Refill(s), Start Date: 06/26/16 10:55:00 GEROPSYCHOLOGIST Special Instructions: Oral Daily Start Date: 06/26/16 Status: OrderedVitamin K1 See Instructions, once daily, 0 Refill(s), Start Date: 06/26/16 10:56:00 GEROPSYCHOLOGIST Special Instructions: once daily Start Date: 06/26/16 Status: Ordered Results Patient Viewable Results Most recent to oldest [Reference Range]: 1 TSH [0.50-3.00 mIU/L] 2.34 mIU/L (08/10/16 10:04 AM) Immunizations No data available for this section Procedures Procedure Date Related Diagnosis Body Site DRAINAGE OF SKIN ABSCESS 05/13/01 Dilation and curettage 1986 Repair of wrist1 1977 1right wrist reset Social History No data available for this section Assessment and Plan No data available for this section
[2016-12-23 18:33] VITALS: BP 125/82
--- NOTE | 2016-12-23 18:40 | ERNOTE ---
Abdominal HPI - Narrative Date of Service: 12/23/16 - General Chief Complaint: Abdominal Pain Time Seen by Provider: 12/23/16 16:55 Source: patient, family Exam Limitations: no limitations - Immun/Allergies/Home Medications Immunizatons: IMMUNIZATION HX Immunizations Up to Date Yes History of Influenza Vaccine No Hx Pneumococcal Vaccination No Allergies/Adverse Reactions: Allergies hydrocodone Allergy (Severe, Verified 12/23/16 16:47) Hives Home Medications: HOME MEDICATIONS Omeprazole 20 mg PO BID #40 tablet. 12/23/16 [Last Taken Unknown] Ondansetron [Zofran Odt] 8 mg PO Q4H #30 tab.shan 12/23/16 [Last Taken Unknown ] - History of Present Illness Narrative: acute onset of epigastric pain Timing: constant, getting worse Quality: moderate, aching, sharpness Activities at Onset: none Modifying Factors - (Improves): Present: other - nothing Modifying Factors - (Worsens): Present: other - nothing Associated Symptoms: Present: denies symptoms Prior Abdominal Problems: Present: none Review of Systems - Review of Systems Constitutional: Present: See HPI, weakness EYE: Present: no symptoms reported ENT: Present: no symptoms reported Respiratory: Present: no symptoms reported Cardiology: Present: no symptoms reported Gastrointestinal/Abdominal: Present: See HPI, nausea, vomiting, abdominal pain Genitourinary: Present: no symptoms reported Musculoskeletal: Present: no symptoms reported Skin: Present: no symptoms reported Neurological: Present: no symptoms reported Endocrine: Present: no symptoms reported Hematologic/Lymphatic: Present: no symptoms reported Psych: Present: no symptoms reported All Other Systems: All systems neg except as marked - Patient's Past Medical History Patient History - Medical: Depression, Kidney stone, Migraines Patient History - Cardiac/Respiratory: Hyperlipidemia Patient History - Cancer: No Hx of Cancer Patient History - Surgical Procedures: D & C, Other Patient History - Other: None LMP (females 10-50): now LMP (Calendar): 12/19/15 - Family History Family History:: no untoward family reactions to anesthesia, no familial bleeding tendencies, no family history of premature - Family History Mother Family History - Medical: Anxiety, Diabetes Type 2, Depression, Osteoporosis Family History - Cardiac/Respiratory: No pertinent hx, CHF Family History - Cancer: No pertinent family hx - Social History Living Situations: home Abuse History: No History of abuse Psych History: Hx of Depression, Current tx/ever been on anti-depressants or anti-anxiety meds Smoking Status: Current every day smoker Have you smoked in the past 12 months: Yes Do you dip or chew tobacco: No Patient requests Smoking Cessation Consult: No Initiate information on Smoking Cessation: No Alcohol Use: none Drug Use: none - Immunizations Immunizations Up to Date: Yes Hx Pneumococcal Vaccination: No History of Influenza Vaccine: No Physical Exam - Physical Exam General Appearance: Present: moderate distress Head Exam: Present: normal inspection Eye Exam: Normal inspection: bilateral, PERRL: bilateral, EOMI: bilateral Ears, Nose, Throat: Present: normal ENT inspection Neck: Present: normal inspection, nontender Respiratory: Present: no respiratory distress, normal breath sounds, no accessory muscle use, chest nontender, lungs clear Cardiovascular/Chest: Present: regular rate, rhythm, no murmur, normal peripheral pulses Peripheral Pulses: N=norm/S=strong/W=weak/B=bound/A=absent: Carotid (R): Normal , Carotid (L): Normal, Radial (R): Normal, Radial (L): Normal, Femoral (R): Normal, Femoral (L): Normal, Dorsalis-pedis (R): Normal Gastrointestinal/Abdominal: Present: normal bowel sounds, tenderness, distended , other - pain in epigastirc area Back Exam: Present: normal inspection, normal range of motion, no CVA tenderness Extremity Exam: Present: normal inspection, non-tender, normal range of motion, no edema DTR: N=norm/NB=norm/brisk/A=abs/DD=dull/dimin/HC=hyperactive: Bicep (R): Normal , Bicep (L): Normal, Tricep (R): Normal, Tricep (L): Normal, Knee (R): Normal, Knee (L): Normal, Ankle (R): Normal, Ankle (L): Normal Skin Exam: Present: normal color, warm/dry Lymphatic Exam: Present: no adenopathy ED Progress - Results and Orders Patient's Lab Results:: I have reviewed the patient's lab results. - Vital Signs Patient's Vital Signs:: I have reviewed the patient's vital signs. Vital Signs: Vital Signs 12/23/16 12/23/16 12/23/16 16:45 17:24 17:50 Temperature 36.8 C Pulse Rate 104 H 82 102 H Respiratory 18 Rate Blood Pressure 144/95 144/96 153/93 O2 Sat by Pulse 98 95 96 Oximetry 12/23/16 18:16 Temperature Pulse Rate 79 Respiratory Rate Blood Pressure 136/91 O2 Sat by Pulse 98 Oximetry - EKG EKG read: Interp. by me - X-Ray nonspecifc bowel gas pattern X-Ray: ankle - Progress/Reassessment Chief Complaint: Abdominal Pain Progress:: Improved - Transfer of Care Expected Disposition: Discharge Departure - Departure Clinical Impression: Gastritis Disposition: Home self-care Condition: Fair Instructions: Gastritis, Adult, [id number] Prescriptions: Omeprazole 20 mg PO BID #40 tablet. Ondansetron [Zofran Odt] 8 mg PO Q4H #30 tab.shan
== END 2016-12-23 18:48 | disposition home or self-care (01) ==
LOC: ER 16:41
DX: K29.70 Gastritis, unspecified, without bleeding (principal); F17.200 Nicotine dependence, unspecified, uncomplicated
CPT/HCPCS: 36415; 74020; 80053; 81001; 82150; 83690; 84703; 85025; 96365; 96375; 99284; J2405

== ENCOUNTER 2017-01-29 21:36 | Emergency (ER) | payer MEDICAID ==
[2017-01-29 22:03] LABS: Hematocrit 34.6 % (37.0-47.0); Hemoglobin 11.8 gm/dL (12.5-16.0); Mean Cell Volume 87.6 fl (78-100); Mean Corpuscular Hemoglobin 29.9 pg (27-31); Mean Corpuscular Hgb Conc 34.1 g/dl (32-36); Mean Platelet Volume 10.7 fl (6.0-9.5); Neutrophil # 5.3 K/mm3 (1.3-6.0); Neutrophil % 56.3 % (42-75.0); Platelet Count 223 K/mm3 (150-450); Red Blood Count 3.95 M/mm3 (4.2-5.4); Red Cell Distribution Width 13.2 % (11.5-14.0); White Blood Count 9.4 K/mm3 (4.0-10.5)
[2017-01-29 22:21] LABS: ALT 17 U/L (19-67); Albumin * 3.5 gm/dl (3.4-5.0); Alkaline Phosphatase * 113 U/L (50-170); Anion Gap 11.8 mmol/L (6.8-13.8); BUN/Creatinine Ratio 12.5 (9.0-21.6); Bilirubin, Total 0.3 mg/dL (0.0-1.1); Blood Urea Nitrogen 10 mg/dL (3-23); Ca. Corrected For Albumin 8.7 mg/dL (8.4-10.2); Calcium * 8.6 mg/dL (7.9-10.9); Chloride 104 mmol/L (97-106); Glucose * 104 mg/dL (70-110); Potassium 3.8 mmol/L (3.4-4.6); Sodium 141 mmol/L (132-142); Total Protein 6.8 gm/dL (6.2-8.2); Troponin I Less than 0.017 ng/ml (0.00-0.10)
[2017-01-29 22:35] LABS: AST 12 U/L (0-48)
--- NOTE | 2017-01-29 22:36 | ERNOTE ---
Dyspnea - General Presenting Symptoms: shortness of breath Time Seen by Provider: 01/29/17 22:25 Source: patient Exam Limitations: no limitations - Immun/Allergies/Home Medications Immunizations: IMMUNIZATION HX Immunizations Up to Date Yes History of Influenza Vaccine No Hx Pneumococcal Vaccination No Allergies/Adverse Reactions: Allergies hydrocodone Allergy (Severe, Verified 12/23/16 16:47) Hives Home Medications: HOME MEDICATIONS NK [No Home Medication] 01/29/17 [Last Taken Unknown] - History of Present Illness Narrative: shortness of breath for 1 week, some small amount of sputum production Severity: mild, moderate Initiating event: Reports: upper resp illness Frequency of episodes: Reports: occassional episodes Associated Symptoms-Dyspnea: Reports: cough - minimal. Denies: fever/chills Review of Systems - Review of Systems Constitutional: Absent: fever, chills EYE: Present: no symptoms reported ENT: Present: nose congestion Respiratory: Present: See HPI, shortness of breath, cough Cardiology: Present: no symptoms reported Gastrointestinal/Abdominal: Present: no symptoms reported Genitourinary: Present: no symptoms reported Musculoskeletal: Present: no symptoms reported Skin: Present: no symptoms reported Neurological: Present: no symptoms reported Endocrine: Present: no symptoms reported Hematologic/Lymphatic: Present: no symptoms reported Psych: Present: no symptoms reported - Patient's Past Medical History Patient History - Medical: Anxiety, Depression, Kidney stone, Migraines Patient History - Cardiac/Respiratory: Hyperlipidemia Patient History - Cancer: No Hx of Cancer Patient History - Surgical Procedures: D & C, Other Patient History - Other: None LMP (Calendar): 12/19/15 - Family History Mother Family History - Medical: Anxiety, Diabetes Type 2, Depression, Osteoporosis Family History - Cardiac/Respiratory: No pertinent hx, CHF Family History - Cancer: No pertinent family hx - Social History Living Situations: home Abuse History: No History of abuse Psych History: Hx of Anxiety, Hx of Depression, Current tx/ever been on anti- depressants or anti-anxiety meds Smoking Status: Current every day smoker Have you smoked in the past 12 months: Yes Patient requests Smoking Cessation Consult: No Initiate information on Smoking Cessation: No Alcohol Use: none Drug Use: none - Immunizations Immunizations Up to Date: Yes Hx Pneumococcal Vaccination: No History of Influenza Vaccine: No Physical Exam - Physical Exam General Appearance: Present: wd/wn, alert, no apparent distress Head Exam: Present: normal inspection, no evidence of injury Eye Exam: Normal inspection: bilateral Ears, Nose, Throat: Present: nasal congestion - pale mucosa Neck: Present: normal inspection, nontender, supple Respiratory: Present: no respiratory distress, no accessory muscle use, lungs clear Cardiovascular/Chest: Present: regular rate, rhythm, no murmur Back Exam: Present: normal inspection, no vertebral tenderness Extremity Exam: Present: normal inspection, normal range of motion Neurological Exam: Present: alert, oriented, normal mood/affect, no motor/ sensory deficits Skin Exam: Present: normal color, warm/dry Lymphatic Exam: Present: no adenopathy ED Progress - Results and Orders Patient's Lab Results:: I have reviewed the patient's lab results. Results and Orders: Laboratory Tests 01/29/17 01/29/17 22:02 22:02 WBC 9.4 Hgb 11.8 L Hct 34.6 L Plt Count 223 Sodium 141 Potassium 3.8 Chloride 104 Carbon Dioxide 29.0 BUN 10 Creatinine 0.80 Random Glucose 104 Calcium 8.6 Total Bilirubin 0.3 AST 12 ALT 17 L Alkaline Phosphatase 113 Troponin I Less than 0.017 Total Protein 6.8 Albumin 3.5 - Vital Signs Patient's Vital Signs:: I have reviewed the patient's vital signs. Vital Signs: Vital Signs 01/29/17 01/29/17 01/29/17 21:38 21:49 22:16 Temperature 36.8 C Pulse Rate 89 80 86 Respiratory 18 18 Rate Blood Pressure 148/93 131/87 O2 Sat by Pulse 100 99 Oximetry - X-Ray X-Ray #1 X-Ray: chest Interpretation: Interp. by me X-ray Comments: negative. - Progress/Reassessment Chief Complaint: Dyspnea Departure Clinical Impression: Allergic rhinitis Qualifiers: Chronicity: acute Allergic rhinitis trigger: pollen Allergic rhinitis seasonality: seasonal Qualified Code(s): J30.1 - Allergic rhinitis due to pollen - Departure Disposition: Home self-care Condition: Good Instructions: Allergic Rhinitis Additional Instructions: Take allergy medication as your are accustomed to . Follow up with your regular doctor as needed Referrals: Chelo Gill ARNP [Primary Care Provider] -
[2017-01-29 23:49] VITALS: BP 135/96
== END 2017-01-29 23:47 | disposition home or self-care (01) ==
LOC: ER 21:36
DX: J30.1 Allergic rhinitis due to pollen (principal); Z87.442 Personal history of urinary calculi; F17.200 Nicotine dependence, unspecified, uncomplicated